=== PATIENT | male | born 2000 | race Hispanic/Latino ===

== ENCOUNTER 2023-05-29 08:34 | Emergency (ER) | payer OTHER ==
[2023-05-29] MEDS ORDERED: Ibuprofen 800 MG TAB ONE (09:00)
[2023-05-29] MEDS ORDERED: Boostrix 0.5 ML (Tdap) VIAL (>/=7 yrs of age) ONE (09:00)
[2023-05-29] MEDS ORDERED: Bacitracin 1 PK ONE (09:00)
== END 2023-05-29 09:13 | disposition home or self-care (01) ==
LOC: MADERS 08:34
DX: S60.021A Contusion of right index finger without damage to nail, initial encounter (principal); F17.290 Nicotine dependence, other tobacco product, uncomplicated; Z23 Encounter for immunization; W23.0XXA Caught, crushed, jammed, or pinched between moving objects, initial encounter
CPT/HCPCS: 90471; 90715